=== PATIENT | female | born 2000 | race Caucasian/White ===

== ENCOUNTER → 2021-11-16 | Outpatient (CLI) | payer MEDICAID | END | disposition home or self-care (01) | LOC: RAD 08:45 | PROVIDERS: ATTEND Nurse Practitioner Family | DX: S06.0X0D Concussion without loss of consciousness, subsequent encounter (principal); R40.1 Stupor; G93.5 Compression of brain; X58.XXXD Exposure to other specified factors, subsequent encounter | CPT/HCPCS: 95816 ==